=== PATIENT | female | born 1995 | race Asian ===

== ENCOUNTER 2018-12-27 19:23 | Emergency (ER) | payer OTHER ==
[2018-12-27] MEDS ORDERED: NS 1,000 ML IV ONE (20:06)
--- NOTE | 2018-12-27 20:07 | EDPHY ---
H & P Time Seen by Provider: 12/27/18 20:06 HPI/ROS: Chief complaint. Abdominal pain HPI. 23-year-old female with left lower abdominal pain that started yesterday. It is low and midline and slightly to the left. Really no right-sided tenderness. No vomiting or diarrhea. Trace blood on her underwear this morning. No urinary symptoms. No fever but somewhat hot and cold. No previous abdominal surgery. No chest pain or shortness of breath. Pain is not worse with walking or movement ROS 10 systems were reviewed and negative with the exception of the elements mentioned in the history of present illness Past Medical/Surgical History: Healthy Social History: Single, nonsmoker, no alcohol Smoking Status: Never smoked Physical Exam: General Appearance: Alert well-developed female mild distress vital signs are stable Eyes: Pupils equal and round no pallor or injection. ENT, Mouth: Mucous membranes are moist. Respiratory: There are no retractions, lungs are clear to auscultation. Cardiovascular: Regular rate and rhythm. Gastrointestinal: Abdomen is soft with left adnexal tenderness. No masses. Normal bowel sounds Neurological: Awake and alert, sensory and motor exams grossly normal. Skin: Warm and dry, no rashes. Musculoskeletal: Neck is supple nontender. Extremities symmetrical, full range of motion. Psychiatric: Patient is oriented X 3, there is no agitation. Constitutional: Initial Vital Signs Temperature (C) 37.1 C 12/27/18 19:38 Heart Rate 85 12/27/18 19:38 Respiratory Rate 16 12/27/18 19:38 Blood Pressure 123/91 H 12/27/18 19:38 O2 Sat (%) 97 12/27/18 19:38 O2 Delivery Mode Room Air Allergies/Adverse Reactions: No Known Allergies Allergy (Unverified 12/27/18 19:42) Home Medications: Medication Instructions Recorded NK [No Known Home Meds] 12/27/18 Medical Decision Making - Diagnostics Imaging Results: Imaging Impressions Pelvic/Renal Ultrasound 12/27/18 20:15 Impression: 1. Normal ovaries. No ovarian cyst or evidence of torsion. No free fluid or adnexal mass. 2. Uterine adenomyosis versus obscured uterine leiomyoma in the posterior body. Findings discussed with Emergency Department physician, Howard Lira M.D., on December 27, 2018 at 2110. Pelvic ultrasound reviewed by me and discussed with Dr. Wallace shows normal ovaries. Heterogeneous slightly thickened posterior body of the uterus. Findings consistent with uterine adenomyosis verses leiomyoma. Procedures: IV normal saline IV Toradol ED Course/Re-evaluation: Re-evaluation at 9:35 a.m. Patient feels much improved with minimal pain and no vaginal bleeding. Patient and I discussed imaging and lab results. We discussed treatment plan including criteria for return and importance of follow- up and further evaluation. She expresses understanding and agreement Differential Diagnosis: I considered ectopic , urinary tract infection, ovarian cyst. Patient has slight spotting and bleeding in between menstrual periods. Ultrasound findings consistent with adenomyosis or lay a myoma of the uterus - Data Points Laboratory Results: Laboratory Results 12/27/18 20:20 12/27/18 20:20 12/27/18 12/27/18 12/27/18 20:20 20:20 20:20 WBC 8.42 10^3/uL 10^3/uL (3.80-9.50) RBC 4.54 10^6/uL 10^6/uL (4.18-5.33) Hgb 13.9 g/dL g/dL (12.6-16.3) Hct 42.4 % % (38.0-47.0) MCV 93.4 fL fL (81.5-99.8) MCH 30.6 pg pg (27.9-34.1) MCHC 32.8 g/dL g/dL (32.4-36.7) RDW 12.2 % % (11.5-15.2) Plt Count 341 10^3/uL 10^3/uL (150-400) MPV 9.9 fL fL (8.7-11.7) Neut % (Auto) 77.6 % H % (39.3-74.2) Lymph % (Auto) 16.9 % % (15.0-45.0) [place] % (Auto) 3.8 % L % (4.5-13.0) Eos % (Auto) 0.7 % % (0.6-7.6) Baso % (Auto) 0.6 % % (0.3-1.7) Nucleat RBC Rel Count 0.0 % % (0.0-0.2) Absolute Neuts (auto) 6.54 10^3/uL H 10^3/uL (1.70-6.50) Absolute Lymphs (auto) 1.42 10^3/uL 10^3/uL (1.00-3.00) Absolute Monos (auto) 0.32 10^3/uL 10^3/uL (0.30-0.80) Absolute Eos (auto) 0.06 10^3/uL 10^3/uL (0.03-0.40) Absolute Basos (auto) 0.05 10^3/uL 10^3/uL (0.02-0.10) Absolute Nucleated RBC 0.00 10^3/uL 10^3/uL (0-0.01) Immature Gran % 0.4 % % (0.0-1.1) Immature Gran # 0.03 10^3/uL 10^3/uL (0.00-0.10) Sodium 139 mEq/L mEq/L (135-145) Potassium 4.1 mEq/L mEq/L (3.5-5.2) Chloride 103 mEq/L mEq/L (97-110) Carbon Dioxide 24 mEq/l mEq/l (22-31) Anion Gap 12 mEq/L mEq/L (6-14) BUN 14 mg/dL mg/dL (7-23) Creatinine 0.6 mg/dL mg/dL (0.6-1.0) Estimated GFR > 60 Glucose 95 mg/dL mg/dL (70-100) Calcium 9.6 mg/dL mg/dL (8.5-10.4) Beta HCG, Qual NEGATIVE Urine Color Urine Appearance Urine pH Ur Specific [place] Urine Protein Urine Ketones Urine Blood Urine Nitrate Urine Bilirubin Urine Urobilinogen Ur Leukocyte Esterase Urine RBC Urine WBC Ur Epithelial Cells Urine Bacteria Urine Glucose 12/27/18 20:00 WBC RBC Hgb Hct MCV MCH MCHC RDW Plt Count MPV Neut % (Auto) Lymph % (Auto) [place] % (Auto) Eos % (Auto) Baso % (Auto) Nucleat RBC Rel Count Absolute Neuts (auto) Absolute Lymphs (auto) Absolute Monos (auto) Absolute Eos (auto) Absolute Basos (auto) Absolute Nucleated RBC Immature Gran % Immature Gran # Sodium Potassium Chloride Carbon Dioxide Anion Gap BUN Creatinine Estimated GFR Glucose Calcium Beta HCG, Qual Urine Color PALE YELLOW Urine Appearance CLEAR Urine pH 6.0 (5.0-7.5) Ur Specific [place] 1.006 (1.002-1.030) Urine Protein NEGATIVE (NEGATIVE) Urine Ketones NEGATIVE (NEGATIVE) Urine Blood 1+ H (NEGATIVE) Urine Nitrate NEGATIVE (NEGATIVE) Urine Bilirubin NEGATIVE (NEGATIVE) Urine Urobilinogen NEGATIVE EU EU (0.2-1.0) Ur Leukocyte Esterase NEGATIVE (NEGATIVE) Urine RBC 1-3 /hpf /hpf (0-3) Urine WBC 0-1 /hpf /hpf (0-3) Ur Epithelial Cells TRACE /lpf /lpf (NONE-1+) Urine Bacteria TRACE /hpf H /hpf (NONE SEEN) Urine Glucose NEGATIVE (NEGATIVE) Medications Given: Discontinued Medications Sodium Chloride (Ns) 1,000 mls @ 0 mls/hr IV EDNOW ONE; Wide Open PRN Reason: Protocol Stop: 12/27/18 20:07 Last Admin: 12/27/18 20:21 Dose: 1,000 mls Ketorolac Tromethamine (Toradol) 15 mg IVP EDNOW ONE Stop: 12/27/18 21:21 Last Admin: 12/27/18 21:23 Dose: 15 mg Departure - Departure Disposition: Home, Routine, Self-Care Clinical Impression: Abdominal pain Qualifiers: Abdominal location: left lower quadrant Qualified Code(s): R10.32 - Left lower quadrant pain Condition: Good Instructions: Abdominal Pain (ED) Additional Instructions: Ibuprofen 400 mg every 6 hr as needed for discomfort Return for increased pain, bleeding, fever Call production assembler on Saturday to arrange follow-up appointment Referrals: NONE *PRIMARY CARE P,. [Primary Care Provider] - As per Instructions Johanne Ramirez MD [Medical Doctor] - 2-3 days, call for appt.
[2018-12-27 20:34] LABS: PLATELET COUNT 341 10^3/uL (150-400)
[2018-12-27 20:51] VITALS: BP 111/76
[2018-12-27] MEDS ORDERED: KETOROLAC 15 MG/1 ML SDV IVP ONE (21:20)
== END 2018-12-27 21:50 | disposition home or self-care (01) ==
DX: R10.32 Left lower quadrant pain (principal); E86.9 Volume depletion, unspecified
CPT/HCPCS: 96374; J1885